=== PATIENT | female | born 1985 | race Hispanic/Latino ===

== ENCOUNTER 2017-09-05 22:38 | Emergency (ER) | payer OTHER ==
[~2017-09-05] VITALS: Ht 165.1 cm; Wt 108.9 kg
--- NOTE | 2017-09-06 00:51 | Diagnostic Imaging Report ---
EXAMINATION: CHEST 2 VIEWS INDICATION: Cough, congestion COMPARISON: None FINDINGS: TUBES and LINES: None. LUNGS: Lungs are well inflated. Lungs are clear. There is no evidence of pneumonia or pulmonary edema. PLEURA: No pleural effusion or pneumothorax. HEART AND MEDIASTINUM: The cardiomediastinal silhouette is unremarkable. BONES AND SOFT TISSUES: No acute osseous lesion. Soft tissues are unremarkable. UPPER ABDOMEN: No free air under the diaphragm. IMPRESSION: No acute thoracic abnormality. Signed by: Dr. Sebas Colmenares M.D. on 09/06/2017 12:48 AM
[2017-09-06 02:25] VITALS: BP 127/59
[2017-09-06] MEDS ORDERED: LEVOFLOXACIN 500 MG TAB ONE (02:28)
[2017-09-06] MEDS ORDERED: HYDROCODONE/APAP 10MG-325MG TAB PO ONE (02:30)
[2017-09-06] MEDS ORDERED: LEVOFLOXACIN 500 MG TAB PO ONE (02:30)
== END 2017-09-06 03:23 | disposition home or self-care (01) ==
LOC: ER 22:38
DX: H66.001 Acute suppurative otitis media without spontaneous rupture of ear drum, right ear (principal); R05 Cough; J20.9 Acute bronchitis, unspecified
CPT/HCPCS: 71020; 83518; 87070; 99283

== ENCOUNTER 2022-01-31 00:23 | Emergency (ER) | payer BC, OTHER ==
[~2022-01-31] VITALS: Ht 165.1 cm; Wt 81.6 kg
[2022-01-31] MEDS ORDERED: KETOROLAC TROMETHAMINE 30 MG/ML VIAL IV STA (01:37)
[2022-01-31] MEDS ORDERED: ONDANSETRON HCL INJ 2MG/ML 2ML 2 MG/ML VIAL IV STA (01:42)
[2022-01-31] MEDS ORDERED: SODIUM CHLORIDE 0.9% 1000ML 1,000 ML IV SCH (01:45)
[2022-01-31] MEDS ORDERED: SODIUM CHLORIDE 0.9% 1000ML 1,000 ML ONE (01:56)
[2022-01-31] MEDS ORDERED: KETOROLAC TROMETHAMINE 30 MG/ML VIAL ONE (01:56)
[2022-01-31] MEDS ORDERED: ONDANSETRON HCL INJ 2MG/ML 2ML 2 MG/ML VIAL ONE (01:56)
[2022-01-31] MEDS ORDERED: ONDANSETRON ODT4 MG PO (02:19)
[2022-01-31] MEDS ORDERED: CIPRO500 MG PO (02:20)
[2022-01-31] MEDS ORDERED: METRONIDAZOLE500 MG PO (02:21)
[2022-01-31] MEDS ORDERED: FERROUS SULFAT325 M1 PO (02:23)
[2022-01-31] MEDS ORDERED: HYDROCODON-ACE1 EAC9 PO (02:24)
== END 2022-01-31 03:14 | disposition home or self-care (01) ==
LOC: FSED 00:49
DX: K60.4 Rectal fistula (principal); D64.9 Anemia, unspecified; R11.10 Vomiting, unspecified; R51.9 Headache, unspecified; Z88.6 Allergy status to analgesic agent; Z79.899 Other long term (current) drug therapy; Z86.19 Personal history of other infectious and parasitic diseases
CPT/HCPCS: 80053; 81025; 85025; 99283; J1885; J2405; J7030